=== PATIENT | female | born 1970 | race Asian ===

== ENCOUNTER 2017-03-11 19:14 | Emergency (ER) | payer OTHER ==
[2017-03-11 20:11] VITALS: BP 122/82
--- NOTE | 2017-03-11 20:36 | UC ---
Laceration HPI - HPI Summary HPI Summary: The patient comes in today for: 1. Left index finger (dorsum) Onset: 1-2 hours ago. Palliative/provocative: finger movement makes it worse. Quality: Stinging. Region: left index finger--dorsal aspect of MP joint. Severity: 06/09 Associated symptoms: None. Last tetanus vaccine: 2-3 years ago. * - History Of Current Complaint Chief Complaint: UCLaceration Stated Complaint: HAND LACERATION Time Seen by Provider: 03/11/17 20:30 Hx Obtained From: Patient - Allergies/Home Medications Allergies/Adverse Reactions: Allergies Allergy/AdvReac Type Severity Reaction Status Date / Time No Known Allergies Allergy Verified 02/15/14 09:53 Home Medications: Home Medications Unknown Joint Medication 03/11/17 [History] PMH/Surg Hx/FS Hx/Imm Hx Previously Healthy: Yes Endocrine History Of: Denies: Diabetes, Thyroid Disease, Hyperthyroidism, Hypothyroidism, Dyslipidemia Cardiovascular History Of: Denies: Cardiac Disorders, Hypertension, Pacemaker/ICD, Myocardial Infarction , Congestive Heart Failure, Atrial Fibrillation, Deep Vein Thrombosis, Bleeding Disorders Respiratory History Of: Denies: COPD, Asthma, Bronchitis, Pneumonia, Pulmonary Embolism GI/ History Of: Denies: Gastroesophageal Reflux, Ulcer, Gastrointestinal Bleed, Gall Bladder Disease, Kidney Stones, Diverticulitis, Renal Disease, Urosepsis Neurological History Of: Denies: TIA, CVA, Dementia, Seizures, Migraine Psychological History Of: Denies: Anxiety, Depression, Bipolar Disorder, Schizophrenia, Post Traumatic Stress Disorder Cancer History Of: Denies: Lung Cancer, Colorectal Cancer, Breast Cancer, Prostate Cancer, Cervical Cancer Other History Of: Negative For: HIV, Hepatitis B, Hepatitis C, Anticoagulant Therapy - Surgical History Surgical History: None Surgery Procedure, Year, and Place: MISCARRAIGE IN JULY 2012. Miscarraige in October 2013 - Family History Known Family History: Positive: Hypertension Negative: Cardiac Disease - Social History Occupation: Employed Full-time Alcohol Use: None Substance Use Type: None Smoking Status (MU): Never Smoked Tobacco - Immunization History Most Recent Tetanus Shot: 2014 Review of Systems Constitutional: Negative Skin: Negative Eyes: Negative ENT: Negative Respiratory: Negative Cardiovascular: Negative All Other Systems Reviewed And Are Negative: Yes Physical Exam Triage Information Reviewed: Yes Appearance: Well-Appearing, No Pain Distress, Well-Nourished Vital Signs: Initial Vital Signs Temp 98.6 F 03/11/17 20:02 Pulse 67 03/11/17 20:02 Resp 16 03/11/17 20:02 BP 122/82 03/11/17 20:02 Pulse Ox 100 03/11/17 20:02 Vital Signs Reviewed: Yes Eyes: Positive: Conjunctiva Clear. Negative: Discharge ENT: Positive: Hearing grossly normal. Negative: Pharyngeal erythema, Nasal congestion, Nasal drainage, TM bulging, TM dull, TM red, Tonsillar swelling, Tonsillar exudate Dental: Negative: Gross Decay/Caries @, Dental Fracture @ Neck: Positive: Supple, Nontender, No Lymphadenopathy. Negative: Nuchal Rigidity, Tenderness @ Respiratory: Positive: Chest non-tender, Lungs clear, No respiratory distress, No accessory muscle use Cardiovascular: Positive: RRR, No Murmur Abdomen Description: Positive: Nontender, No Organomegaly, Soft. Negative: CVA Tenderness (L), Distended, Guarding Musculoskeletal: Positive: Strength Intact, ROM Intact, No Edema Neurological: Positive: Alert, Muscle Tone Normal Psychological: Positive: Normal Response To Family, Age Appropriate Behavior, Consolable Skin: Positive: Other - The skin was laceration. The Extensor tendon was seen, but the sheath was not lacerated.. Negative: rashes, breakdown Laceration Repair - Laceration Repair 1 Description: Linear Laceration Size After Repair: Length (cm) - 1.5, Width (mm) - 3, Depth (mm) - 3 Modified For Repair: No Type Injection: Local Anesthesia Used: 2.0% Lido Closure Material: Sutures Closure Method: Single Layer Suture Of: Skin Suture Type: Nylon - Five 4-0 Laceration Course/Dx - Course/Dx Course Of Treatment: Laceration repair. - Differential Dx - Laceration/Wound Provider Diagnoses: Laceration repair of the laceration of the skin of the volar aspect of the MP moint of the left index finger. Discharge - Discharge Plan Condition: Stable Disposition: HOME Patient Education Materials: Finger Laceration (ED) Referrals: Chetan Verdin MD [Primary Care Provider] - 2 Weeks (Please see your primary care provider or us in 12-14 days to have the suture removed. Please watch for redness, swelling, tenderness, discharge between now and the time the sutures are removed. Keep from getting wet. If wet, dry right away. Re-dress with Polysporin ointment and Telfa dressing.) Additional Instructions: Use [id number] pain medication as needed for discomfort.
[2017-03-11] MEDS ORDERED: Lidocaine 2% PF* 5 ML VIAL ONE (20:40)
== END 2017-03-11 21:27 | disposition home or self-care (01) ==
LOC: UCEAST 19:14
DX: S61.211A Laceration without foreign body of left index finger without damage to nail, initial encounter (principal); W45.8XXA Other foreign body or object entering through skin, initial encounter; Y93.9 Activity, unspecified; Y92.9 Unspecified place or not applicable
CPT/HCPCS: 12001; 12031; 99211; G0463

== ENCOUNTER 2017-10-16 14:38 | Emergency (ER) | payer OTHER ==
[2017-10-16 15:03] VITALS: BP 107/68
--- NOTE | 2017-10-16 16:05 | UC ---
Respiratory Complaint HPI - HPI Summary HPI Summary: Patient presents with continued complaints of fatigue, malaise, sore throat, chest congestion and cough. she states she was seen by her PCP and RX cough medication and states she does not feel well. She denies chest pain, dyspnea, sputum production, abdominal pain, nausea, vomiting, or diarrhea. - History of Current Complaint Chief Complaint: UCGeneralIllness Stated Complaint: cough Time Seen by Provider: 10/16/17 15:36 Hx Obtained From: Patient Hx Last Menstrual Period: 02/09/14 Onset/Duration: Sudden Onset, Lasting Days Timing: Constant Severity Initially: Mild Severity Currently: Moderate Character: Cough: Nonproductive Aggravating Factors: Deep Breaths, Recumbent Position Alleviating Factors: Upright Position, Spontaneous Resolution Associated Signs And Symptoms: Positive: URI, Nasal Congestion, Sinus Discomfort - Risk Factors Pulmonary Embolism Risk Factors: Negative Cardiac Risk Factors: Negative Pseudomonas Risk Factors: Negative Tuberculosis Risk Factors: Negative - Allergies/Home Medications Allergies/Adverse Reactions: Allergies Allergy/AdvReac Type Severity Reaction Status Date / Time No Known Allergies Allergy Verified 10/16/17 14:52 Home Medications: Home Medications Acetaminophen [Tylenol] 325 mg PO 10/16/17 [History] Benzonatate CAP* [Tessalon 100 MG CAP*] 100 mg PO TID PRN 10/16/17 [History Confirmed 10/16/17] Calcium Carbonate (Antacid) [Tums] 500 mg PO 10/16/17 [History] PMH/Surg Hx/FS Hx/Imm Hx Previously Healthy: Yes Other History Of: Negative For: HIV, Hepatitis B, Hepatitis C, Anticoagulant Therapy - Surgical History Surgical History: None Surgery Procedure, Year, and Place: MISCARRAIGE IN JULY 2012. Miscarraige in October 2013 - Family History Known Family History: Positive: Hypertension Negative: Cardiac Disease - Social History Occupation: Employed Full-time Lives: Alone Alcohol Use: None Substance Use Type: None Smoking Status (MU): Never Smoked Tobacco - Immunization History Most Recent Influenza Vaccination: 2017 Most Recent Tetanus Shot: 2014 Review of Systems Constitutional: Fatigue Skin: Negative Eyes: Negative ENT: Sore Throat, Ear Ache, Nasal Discharge, Sinus Congestion Respiratory: Cough Cardiovascular: Negative Gastrointestinal: Negative Genitourinary: Negative Motor: Negative Neurovascular: Negative Musculoskeletal: Negative Neurological: Negative Psychological: Negative All Other Systems Reviewed And Are Negative: Yes Physical Exam Triage Information Reviewed: Yes Appearance: Well-Appearing Vital Signs: Initial Vital Signs Temp 98.6 F 10/16/17 14:56 Pulse 75 10/16/17 14:56 Resp 16 10/16/17 14:56 BP 107/68 10/16/17 14:56 Pulse Ox 100 10/16/17 14:56 Eye Exam: Normal ENT: Positive: Pharyngeal erythema, Nasal congestion, Sinus tenderness Neck exam: Normal Neck: Positive: 1 Respiratory: Positive: No respiratory distress, No accessory muscle use, Other: - harsh breath sounds throghout. Cardiovascular Exam: Normal Abdominal Exam: Normal Musculoskeletal Exam: Normal Neurological Exam: Normal Psychological Exam: Normal Skin Exam: Normal UC Diagnostic Evaluation - Laboratory O2 Sat by Pulse Oximetry: 100 Respiratory Course/Dx - Course Course Of Treatment: Patient presents with clinical signs of bronchitis. She has normal VS, afebrile. Treated with ABX, and cough medicaiton. Told to follow up if her symtpoms persist, and/or go to the ER if symtpoms get worse. Patient verbalized undestanding of and was in agreement with the discharge plan. - Differential Dx/Diagnosis Differential Diagnosis/HQI/PQRI: Bronchitis Provider Diagnoses: Bronchitis Discharge - Discharge Plan Condition: Stable Disposition: HOME Prescriptions: Azithromycin TAB* [Zithromax TAB (Z-PHILOMENA) 250 mg #6 tabs] 250 mg PO DAILY #6 tab [id number] [Promethazine Vc/Codeine] 5 ml PO Q6H PRN #120 ml MDD 20 PRN Reason: Cough Patient Education Materials: Acute Bronchitis (ED) Referrals: Chetan Verdin MD [Primary Care Provider] - Additional Instructions: Do not drive if you take the cough medication. follow up with your doctor in two days. Do not take with the zaid pearandrew.
== END 2017-10-16 16:00 | disposition home or self-care (01) ==
LOC: UCEAST 14:38
DX: J40 Bronchitis, not specified as acute or chronic (principal)
CPT/HCPCS: 99212; G0463

== ENCOUNTER 2019-01-25 17:24 | Emergency (ER) | payer OTHER ==
--- NOTE | 2019-01-25 17:58 | UC ---
Respiratory Complaint HPI - HPI Summary HPI Summary: 48 yo female presents with 5 days of sinus pain/pressure/congestion, post nasal drip, and dry cough. She has not been taking anything OTC for her symptoms. Denies fever, chills, body aches, sore throat, SOB, n/v. - History of Current Complaint Stated Complaint: COUGH Time Seen by Provider: 01/25/19 17:58 Hx Obtained From: Patient Hx Last Menstrual Period: 02/09/14 Onset/Duration: Gradual Onset Timing: Constant Severity Initially: Mild Severity Currently: Mild Pain Intensity: 3 Pain Scale Used: 0-10 Numeric Character: Cough: Nonproductive - Allergies/Home Medications Allergies/Adverse Reactions: Allergies Allergy/AdvReac Type Severity Reaction Status Date / Time No Known Allergies Allergy Verified 01/25/19 18:05 PMH/Surg Hx/FS Hx/Imm Hx - Additional Past Medical History Additional PMH: None Other History Of: Negative For: HIV, Hepatitis B, Hepatitis C, Anticoagulant Therapy - Surgical History Surgical History: None Surgery Procedure, Year, and Place: MISCARRAIGE IN JULY 2012. Miscarraige in October 2013 - Family History Known Family History: Positive: Hypertension Negative: Cardiac Disease - Social History Occupation: Employed Full-time Lives: With Family Alcohol Use: None Substance Use Type: None Smoking Status (MU): Never Smoked Tobacco - Immunization History Most Recent Influenza Vaccination: 2017 Most Recent Tetanus Shot: 2014 Review of Systems All Other Systems Reviewed And Are Negative: Yes Constitutional: Positive: Negative Skin: Positive: Negative Eyes: Positive: Negative ENT: Positive: Nasal Discharge, Sinus Congestion, Sinus Pain/Tenderness Respiratory: Positive: Cough Cardiovascular: Positive: Negative Gastrointestinal: Positive: Negative Neurovascular: Positive: Negative Neurological: Positive: Negative Psychological: Positive: Negative Physical Exam - Summary Physical Exam Summary: GENERAL: NAD. WDWN. No pain distress. SKIN: No rashes, sores, lesions, or open wounds. HEENT: Head: AT/NC Eyes: EOM intact. Conjunctiva clear without inflammation or discharge. Ears: Hearing grossly normal. TMs intact, no bulging, erythema, or edema. Nose: Nasal mucosa mildly swollen and erythematous with yellow/ clear discharge. TTP maxillary and frontal sinus. Positive post nasal drip Throat: Posterior oropharynx without exudates, erythema, or tonsillar enlargement. Uvula midline. NECK: Supple. Nontender. No lymphadenopathy. CHEST: CTAB. No r/r/w. No accessory muscle use. Breathing comfortably and in no distress. CV: RRR. Without m/r/g. Pulses intact. NEURO: Alert. PSYCH: Age appropriate behavior. Triage Information Reviewed: Yes Vital Signs: Vital Signs: Temp Pulse Resp BP Pulse Ox 97.4 F 90 16 103/66 100 01/25/19 18:01 01/25/19 18:01 01/25/19 18:01 01/25/19 18:01 01/25/19 18:01 Vital Signs Reviewed: Yes Respiratory Course/Dx - Course Course Of Treatment: Sinusitis - Differential Dx/Diagnosis Provider Diagnosis: Sinusitis Discharge - Sign-Out/Discharge Documenting (check all that apply): Patient Departure All imaging exams completed and their final reports reviewed: No Studies - Discharge Plan Condition: Stable Disposition: HOME Prescriptions: Amoxicillin PO (*) [Amoxicillin 875 MG (*)] 875 mg PO BID #14 tab Benzonatate CAP* [Tessalon 100 MG CAP*] 100 mg PO TID PRN #21 cap PRN Reason: Cough Patient Education Materials: Sinusitis (ED), Acute Cough (ED) Referrals: Chetan Verdin MD [Primary Care Provider] - Additional Instructions: If you develop a fever, shortness of breath, chest pain, new or worsening symptoms - please call your PCP or go to the ED. - Billing Disposition and Condition Condition: STABLE Disposition: Home
[2019-01-25 18:05] VITALS: BP 103/66
== END 2019-01-25 18:25 | disposition home or self-care (01) ==
LOC: UCEAST 17:24
DX: J32.9 Chronic sinusitis, unspecified (principal)
CPT/HCPCS: 99212; G0463